=== PATIENT | female | born 1990 | race American Indian/Alaskan Native ===

== ENCOUNTER 2017-06-28 17:36 | Emergency (ER) | payer MEDICAID ==
[2017-06-28 18:17] LABS: Basophils % (Auto) 0.3 % (0.0-1.8); Eosinophils % (Auto) 0.5 % (0.0-4.3); Hematocrit 32.9 % (30.3-42.9); Hemoglobin 11.8 gm/dl (10.1-14.3); Mean Corpuscular HGB Conc 36 % (30-34); Mean Corpuscular Hemoglobin 32 pg (28-32); Mean Corpuscular Volume 90 fl (79-97); Platelet Count 241 K/mm3 (140-440); Red Blood Count 3.67 M/mm3 (3.65-5.03); White Blood Count 5.6 K/mm3 (4.5-11.0)
[2017-06-28 18:20] LABS: Alanine Aminotransferase 6 units/L (7-56); Albumin 4.2 g/dL (3.9-5); Albumin/Globulin Ratio 1.7 %; Alkaline Phosphatase 30 units/L (35-129); Anion Gap 16 mmol/L; Blood Urea Nitrogen 9 mg/dL (7-17); Calcium 8.9 mg/dL (8.4-10.2); Carbon Dioxide 25 mmol/L (22-30); Chloride 98.6 mmol/L (98-107); Glucose 89 mg/dL (65-100); Lipase 35 units/L (13-60); Sodium 136 mmol/L (137-145); Total Protein 6.7 g/dL (6.3-8.2)
[2017-06-28 19:01] LABS: Bilirubin,Urine NEG (Negative); Blood,Urine NEG (Negative); Ketones,Urine NEG (Negative); Leukocyte Esterase,Urine NEG (Negative); Mucus,Urine FEW /HPF; Nitrite,Urine NEG (Negative); Protein,Urine <15 mg/dL mg/dL (Negative)
[2017-06-28] MEDS ORDERED: MOTRIN PO ONE (22:22)
[2017-06-28] MEDS ORDERED: TYLENOL PO ONE (22:23)
[2017-06-28 22:25] VITALS: BP 115/87
--- NOTE | 2017-06-28 23:05 | Emergency Department Report ---
ED Abdominal Pain HPI - General Chief Complaint: Abdominal Pain Stated Complaint: PAIN/D/C TOMMOROW Time Seen by Provider: 06/28/17 22:56 Source: patient Mode of arrival: Ambulatory Limitations: No Limitations - History of Present Illness Initial Comments: 26-year-old female G 2 P12 A 10 year with complaint of diffuse abdominal pain. Denies vaginal bleeding as of discharge. Was seen at the OB office today and told that she had a demise. Presents here for D&C. MD Complaint: abdominal pain Location: diffuse Radiation: none Migration to: no migration Severity scale (0 -10): 9 Quality: cramping Associated Symptoms: denies other symptoms - Related Data Previous Rx's Medication Instructions Recorded Last Taken Type Ibuprofen [Motrin] 600 mg PO Q8H PRN #30 tablet 06/28/17 Unknown Rx oxyCODONE /ACETAMINOPHEN [Percocet 1 tab PO Q6HR PRN #30 tablet 06/28/17 Unknown Rx 5/325] Ferrous Sulfate [Feosol 325 MG tab] 325 mg PO BID #60 tablet 06/29/17 Unknown Rx Allergies Allergy/AdvReac Type Severity Reaction Status Date / Time No Known Allergies Allergy Verified 06/28/17 16:41 ED Review of Systems ROS: Stated complaint: PAIN/D/C TOMMOROW Other details as noted in HPI Comment: All other systems reviewed and negative Constitutional: denies: chills, fever Eyes: denies: eye pain, eye discharge, vision change ENT: denies: ear pain, throat pain Respiratory: denies: cough, shortness of breath, wheezing Cardiovascular: denies: chest pain, palpitations Endocrine: no symptoms reported Gastrointestinal: denies: abdominal pain, nausea, diarrhea Genitourinary: denies: urgency, dysuria, hematuria, discharge, abnormal menses Musculoskeletal: denies: back pain, joint swelling, arthralgia Skin: denies: rash, lesions Neurological: denies: headache, weakness, paresthesias Psychiatric: denies: anxiety, depression Hematological/Lymphatic: denies: easy bleeding, easy bruising ED Past Medical Hx - Past Medical History Previous Medical History?: No Hx HIV: No - Surgical History Past Surgical History?: Yes Additional Surgical History: x 5 - Family History Family history: no significant - Social History Smoking Status: Never Smoker Substance Use Type: None - Medications Home Medications: Home Medications Medication Instructions Recorded Confirmed Last Taken Type Ibuprofen [Motrin] 600 mg PO Q8H PRN #30 tablet 06/28/17 Unknown Rx oxyCODONE /ACETAMINOPHEN [Percocet 1 tab PO Q6HR PRN #30 tablet 06/28/17 Unknown Rx 5/325] Ferrous Sulfate [Feosol 325 MG tab] 325 mg PO BID #60 tablet 06/29/17 Unknown Rx ED Physical Exam - General Limitations: No Limitations General appearance: alert, in no apparent distress - Head Head exam: Present: atraumatic, normocephalic - Eye Eye exam: Present: normal appearance - ENT ENT exam: Present: mucous membranes moist - Neck Neck exam: Present: normal inspection - Respiratory Respiratory exam: Present: normal lung sounds bilaterally. Absent: respiratory distress - Cardiovascular Cardiovascular Exam: Present: regular rate, normal rhythm. Absent: systolic murmur, diastolic murmur, rubs, gallop - GI/Abdominal GI/Abdominal exam: Present: soft, normal bowel sounds - External exam: Present: other (exam deferred to gynecology) - Extremities Exam Extremities exam: Present: normal inspection - Back Exam Back exam: Present: normal inspection - Neurological Exam Neurological exam: Present: alert, oriented X3 - Psychiatric Psychiatric exam: Present: normal affect, normal mood - Skin Skin exam: Present: warm, dry, intact, normal color. Absent: rash ED Course Vital Signs 06/28/17 06/28/17 06/28/17 17:43 22:23 23:00 Temperature 98.5 F 98.1 F Pulse Rate 78 65 Respiratory 16 18 20 Rate Blood Pressure 99/67 Blood Pressure 115/87 [Right] O2 Sat by Pulse 100 100 99 Oximetry ED Medical Decision Making - Lab Data Result diagrams: 06/28/17 17:49 06/28/17 17:49 Laboratory Results - last 24 hr 06/28/17 06/28/17 06/28/17 17:49 17:49 18:23 WBC 5.6 RBC 3.67 Hgb 11.8 Hct 32.9 MCV 90 MCH 32 MCHC 36 H RDW 13.0 L Plt Count 241 Lymph % (Auto) 31.6 [place] % (Auto) 9.0 H Eos % (Auto) 0.5 Baso % (Auto) 0.3 Lymph # 1.8 [place] # 0.5 Eos # 0.0 Baso # 0.0 Seg Neutrophils % 58.6 Seg Neutrophils # 3.3 Sodium 136 L Potassium 4.0 Chloride 98.6 Carbon Dioxide 25 Anion Gap 16 BUN 9 Creatinine 0.5 L Estimated GFR > 60 BUN/Creatinine Ratio 18.00 Glucose 89 Calcium 8.9 Total Bilirubin 0.90 AST 10 ALT 6 L Alkaline Phosphatase 30 L Total Protein 6.7 Albumin 4.2 Albumin/Globulin Ratio 1.7 Lipase 35 Urine Color Yellow Urine Turbidity Clear Urine pH 7.0 Ur Specific [place] 1.024 Urine Protein <15 mg/dl Urine Glucose (UA) Neg Urine Ketones Neg Urine Blood Neg Urine Nitrite Neg Urine Bilirubin Neg Urine Urobilinogen 2.0 Ur Leukocyte Esterase Neg Urine WBC (Auto) 1.0 Urine RBC (Auto) 1.0 U Epithel Cells (Auto) 4.0 Urine Mucus Few - Medical Decision Making Patient here for D&C. Dr. Zhang here to perform D&C. Patient be sent to the OR. Portions of this chart were dictated with dictation software. There may be dictation errors contained within this note. Critical care attestation.: If time is entered above; I have spent that time in minutes in the direct care of this critically ill patient, excluding procedure time. ED Disposition Clinical Impression: Ectopic Disposition: DC/TX-70 ANOTHER TYPE HLTHCARE Is pt being admited?: Yes Condition: Stable Instructions: Abdominal Pain (ED) Referrals: PRIMARY CAREMD [Primary Care Provider] - 3-5 Days
--- NOTE | 2017-06-28 23:15 | Anesthesia Consultation ---
Anesthesia Consult and Med Hx Date of service: 06/28/17 - Airway Anesthetic Teeth Evaluation: Good ROM Head & Neck: Adequate Mental/Hyoid Distance: Adequate Mallampati Class: Class II - Pre-Operative Health Status ASA Pre-Surgery Classification: ASA1, Emergency Proposed Anesthetic Plan: General - Central Nervous System Hx Psychiatric Problems: No - Other Systems Hx Cancer: No
--- NOTE | 2017-06-28 23:15 | Anesthesia Day of Surgery ---
Anesthesia Day of Surgery - Day of Surgery Patient Examined: Yes Patient H&P Reviewed: Yes Patient is NPO: Yes (last meal @ 15:00)
[2017-06-28] MEDS ORDERED: DILAUDID ONE (23:17)
[2017-06-28] MEDS ORDERED: XYLOCAINE MPF 2% ONE (23:17)
[2017-06-28] MEDS ORDERED: DIPRIVAN 10 MG/ML IV ONE (23:17)
[2017-06-28] MEDS ORDERED: NACL 0.9% 1000 ML 1,000 ML ONE (23:20)
[2017-06-28] MEDS ORDERED: TORADOL ONE (23:58)
[2017-06-28] MEDS ORDERED: ZOFRAN ONE (23:58)
[2017-06-29] MEDS ORDERED: CYTOTEC VG ONE (00:12)
== END 2017-06-29 00:15 | disposition other institution (70) ==
LOC: ED 17:36
DX: O02.1 Missed abortion (principal); R10.84 Generalized abdominal pain; Z3A.00 Weeks of gestation of pregnancy not specified
CPT/HCPCS: 36415; 59812; 80053; 81001; 83690; 85025; 86850; 86900; 86901; 88305; 99285; J1170; J1885; J2405; J2590; J2704; J7030

== ENCOUNTER 2018-03-04 13:39 | Emergency (ER) | payer MEDICAID ==
[2018-03-04 15:16] LABS: Bilirubin,Urine NEG (Negative); Blood,Urine NEG (Negative); Color,Urine Yellow (Yellow); Mucus,Urine FEW /HPF; Protein,Urine <15 mg/dL mg/dL (Negative); Urobilinogen,Urine < 2.0 mg/dL (<2.0)
[2018-03-04 15:18] LABS: HCG Qualitative,Urine Positive (Negative)
[2018-03-04 17:27] LABS: Basophils % (Auto) 0.7 % (0.0-1.8); Eosinophils # (Auto) 0.3 K/mm3 (0.0-0.4); Eosinophils % (Auto) 4.9 % (0.0-4.3); Hematocrit 36.8 % (30.3-42.9); Lymphocytes # (Auto) 2.6 K/mm3 (1.2-5.4); Lymphocytes % (Auto) 38.5 % (13.4-35.0); Mean Corpuscular HGB Conc 35 % (30-34); Mean Corpuscular Hemoglobin 31 pg (28-32); Mean Corpuscular Volume 89 fl (79-97); Monocytes # (Auto) 0.4 K/mm3 (0.0-0.8); Monocytes % (Auto) 6.7 % (0.0-7.3); Platelet Count 257 K/mm3 (140-440); Red Blood Count 4.13 M/mm3 (3.65-5.03); Red Cell Distribution Width 13.3 % (13.2-15.2)
[2018-03-04] MEDS ORDERED: ZOFRAN ODT PO ONE (17:27)
--- NOTE | 2018-03-04 17:28 | Emergency Department Report ---
Blank Doc - Documentation Documentation: 27-year-old female presents with complaints of nausea with intermittent vomiting 2 days and crampy left lower quadrant pain rated 7/10 intensity. Denies fever, dysuria, vaginal discharge, or bleeding. Patient did not realize she was . UA here in the ED reveals a normal UA but a positive urine test. LMP 02/04/2018. This is patient's 12 or 13th if she has 2 living children, one history of miscarriage, and had abortions during the remainder pregnancies. Labs ordered CBC, BMP, LFTs, lipase, hCG Quant Ultrasound OB transvaginal Zofran for nausea Patient declined Tylenol stating it does not work
[2018-03-04 17:49] LABS: Alanine Aminotransferase 8 units/L (7-56); Albumin 4.6 g/dL (3.9-5); BUN/Creatinine Ratio 35; Blood Urea Nitrogen 14 mg/dL (7-17); Calcium 8.7 mg/dL (8.4-10.2); Hemolysis Index 62
--- NOTE | 2018-03-04 20:10 | Ultrasound Report ---
FINAL REPORT EXAM: US OB < = 14 WEEKS FETUS HISTORY: vomiting, pregancy TECHNIQUE: Transabdominal and transvaginal sonography of the pelvis. PRIORS: None. FINDINGS: The uterus measures 7.9 x 4.7 x 5.6 cm and appears grossly unremarkable. The endometrial stripe measures mm in AP dimension. No intrauterine fluid collection or IUP identified. The right ovary measures 3.6 x 1.9 x 3.2 cm and contains an ovoid, hypoechoic focus measuring approximately 1.9 cm, which may represent involuting follicle or cyst. The left ovary measures 2.1 x 1.4 x 2.2 cm and is grossly unremarkable. No adnexal masses, ring-like structures or significant free peritoneal fluid. IMPRESSION: 1. No IUP identified. Possibilities include early gestation, early failure, or ectopic . Correlation with serial beta-hCG levels and follow-up ultrasound may help in further evaluation. 2. Findings suggesting involuting follicle or cyst in the right ovary.
--- NOTE | 2018-03-04 20:33 | Emergency Department Report ---
ED HPI - General Chief complaint: Nausea/Vomiting/Diarrhea Stated complaint: VOMITING Time Seen by Provider: 03/04/18 17:21 Source: patient Mode of arrival: Ambulatory Limitations: No Limitations - History of Present Illness Initial comments: This is a 27-year-old female [id number] nontoxic, well nourished in appearance, no acute signs of distress presents to the ED with c/o of nausea, intermittent vomiting, and lower left pelvic cramping 2 days. Patient stated had a positive test at home. Patient denies any fever, chills, nausea, vomiting, headache, stiff neck, numbness, tingling, vaginal bleeding, vaginal discharge. Patient denies any allergies or PMH. MD Complaint: abdominal pain, other (nausea, vomiting) -: days(s) (2) Location: pelvis Radiation: none Severity: mild Severity scale (0 -10): 8 Quality: cramping Consistency: constant Improves with: none Worsens with: none Associated symptoms: nausea/vomiting, abdominal pain (pelvic region). denies: vaginal bleeding, vaginal discharge, dysuria, headache, vision changes, malaise , dysparuenia, rash, seizure, shortness of breath, syncope, weakness Vaginal bleeding: none :: Yes Pre-issac care: none - Related Data Previous Rx's Medication Instructions Recorded Last Taken Type Ibuprofen [Motrin] 600 mg PO Q8H PRN #30 tablet 06/28/17 Unknown Rx oxyCODONE /ACETAMINOPHEN [Percocet 1 tab PO Q6HR PRN #30 tablet 06/28/17 Unknown Rx 5/325] Ferrous Sulfate [Feosol 325 MG tab] 325 mg PO BID #60 tablet 06/29/17 Unknown Rx Allergies Allergy/AdvReac Type Severity Reaction Status Date / Time No Known Allergies Allergy Verified 06/28/17 16:41 ED Review of Systems ROS: Stated complaint: VOMITING Other details as noted in HPI Constitutional: denies: chills, fever Eyes: denies: eye pain, eye discharge, vision change ENT: denies: ear pain, throat pain Respiratory: denies: cough, shortness of breath, wheezing Cardiovascular: denies: chest pain, palpitations Endocrine: no symptoms reported Gastrointestinal: abdominal pain, nausea, vomiting. denies: diarrhea Genitourinary: denies: urgency, dysuria, discharge Musculoskeletal: denies: back pain, joint swelling, arthralgia Skin: denies: rash, lesions Neurological: denies: headache, weakness, paresthesias Psychiatric: denies: anxiety, depression Hematological/Lymphatic: denies: easy bleeding, easy bruising ED Past Medical Hx - Past Medical History Hx HIV: No - Surgical History Additional Surgical History: x 5 - Social History Smoking Status: Never Smoker Substance Use Type: None - Medications Home Medications: Home Medications Medication Instructions Recorded Confirmed Last Taken Type Ibuprofen [Motrin] 600 mg PO Q8H PRN #30 tablet 06/28/17 Unknown Rx oxyCODONE /ACETAMINOPHEN [Percocet 1 tab PO Q6HR PRN #30 tablet 06/28/17 Unknown Rx 5/325] Ferrous Sulfate [Feosol 325 MG tab] 325 mg PO BID #60 tablet 06/29/17 Unknown Rx ED Physical Exam - General Limitations: No Limitations General appearance: alert, in no apparent distress - Head Head exam: Present: atraumatic, normocephalic - Eye Eye exam: Present: normal appearance Pupils: Present: normal accommodation - ENT ENT exam: Present: normal exam, mucous membranes moist - Neck Neck exam: Present: normal inspection, full ROM. Absent: tenderness, meningismus - Respiratory Respiratory exam: Present: normal lung sounds bilaterally. Absent: respiratory distress, wheezes, rales, rhonchi, stridor - Cardiovascular Cardiovascular Exam: Present: regular rate, normal rhythm, normal heart sounds. Absent: bradycardia, tachycardia, irregular rhythm, systolic murmur, diastolic murmur, rubs, gallop - GI/Abdominal GI/Abdominal exam: Present: soft, normal bowel sounds. Absent: distended, tenderness, guarding, rebound, rigid, diminished bowel sounds - Expanded GI/Abdominal Exam Expanded GI/Abdominal exam: Absent: psoas sign, obturator sign, heel tap sign, Stallworth's sign, Rovsing's sign, tenderness at Mcburney's Point, ascites - Rectal Rectal exam: Present: deferred - Extremities Exam Extremities exam: Present: normal inspection, full ROM, normal capillary refill - Back Exam Back exam: Present: normal inspection, full ROM. Absent: tenderness, CVA tenderness (R), CVA tenderness (L), muscle spasm, paraspinal tenderness, vertebral tenderness, rash noted - Neurological Exam Neurological exam: Present: alert, oriented X3, normal gait - Psychiatric Psychiatric exam: Present: normal affect, normal mood - Skin Skin exam: Present: warm, dry, intact, normal color. Absent: rash ED Course Vital Signs 03/04/18 13:42 Temperature 98.2 F Pulse Rate 74 Respiratory 16 Rate Blood Pressure 114/82 O2 Sat by Pulse 100 Oximetry - Reevaluation(s) Reevaluation #1: 03/04/18 20:35 Patient is speaking in full sentences with no signs of distress noted. ED Medical Decision Making - Lab Data Result diagrams: 03/04/18 17:07 03/04/18 17:07 - Medical Decision Making This is a 27-year-old female that presents with . Patient is stable and was examined by me. The HCG Qant at 100s. US OB and transvaginal obtained and dictated by the radiologist. Patient is notified of the US report with no questions noted by the patient. PAtient was instructed to return to the ED or OB /[facility] in 48 hours for a repeat of HCG morelia. Labs are within normal limits including H/H. Patient was referred to Follow-up with a [facility] doctor in 2 days or if symptoms worsen and continue return to emergency room as soon as possible. At time of discharge, the patient does not seem toxic or ill in appearance. No acute signs of distress noted. Patient agrees to discharge treatment plan of care. No further questions noted by the patient. Critical care attestation.: If time is entered above; I have spent that time in minutes in the direct care of this critically ill patient, excluding procedure time. ED Disposition Clinical Impression: Qualifiers: Weeks of gestation: unspecified Qualified Code(s): Z34.90 - Encounter for supervision of normal , unspecified, unspecified trimester Disposition: DC-01 TO HOME OR SELFCARE Is pt being admited?: No Does the pt Need Aspirin: No Condition: Stable Instructions: (ED) Additional Instructions: Return to the ED or OBGYN in 48 hours for a repeat of HCG quantitative test. Follow-up with a [facility] doctor in 2 days or if symptoms worsen and continue return to emergency room as soon as possible. Referrals: PRIMARY CARE, [Primary Care Provider] - 3-5 Days [facility]AD BATEMAN MD [Staff Physician] - 3-5 Days [facility] [Provider Group] - 3-5 Days [facility] [Outside] - 3-5 Days Forms: Work/School Release Form(ED)
[2018-03-04 20:52] VITALS: BP 107/74
== END 2018-03-04 20:52 | disposition home or self-care (01) ==
LOC: ED 13:39
DX: O21.0 Mild hyperemesis gravidarum (principal); Z3A.00 Weeks of gestation of pregnancy not specified
CPT/HCPCS: 36415; 76801; 76817; 80053; 81001; 81025; 83690; 84702; 85025; Q0162

== ENCOUNTER 2018-06-16 14:11 | Emergency (ER) | payer MEDICAID ==
[2018-06-16 14:24] VITALS: BP 112/77
--- NOTE | 2018-06-16 16:03 | Emergency Department Report ---
ED Female HPI - General Chief complaint: Urogenital-Female Stated complaint: ITCHING DISCHARGE Time Seen by Provider: 06/16/18 16:02 Source: patient Mode of arrival: Ambulatory Limitations: No Limitations - History of Present Illness Initial comments: Patient here complaining of vaginal discharge with some itching. She said that discharge has an odor and it smells like previous discharge that she had in the past and she had chlamydia. Patient is unsure who she had sexual activity with to get chlamydia and does not know if individual is having similar symptoms but she says she sure she has chlamydia because the discharge is yellow and it smelled. She denies any fishy odor. Denies any cottage cheeselike discharge but also reports that there is some itching. She denies any abdominal pain or back pain. Denies any vaginal bleeding. Last menstrual period was 06/11/2018. Patient says she does not want to get test that she wants to be treated because she not she has chlamydia. Pain is 0-10 at present. Denies any urinary burning, frequency or urgency. MD Complaint: vaginal discharge Onset/Timin -: days(s) Severity scale (0 -10): 0 Are you Now?: No Last Menstrual Period: 06/11/18 EDC: 03/18/19 Associated Symptoms: vaginal discharge. denies: vaginal bleeding, abdominal pain, nausea/vomiting, fever/chills, headaches, loss of appetite, dysuria, hematuria, rash, seizure, shortness of breath, syncope, weakness - Related Data Sexually active: Yes Previous Rx's Medication Instructions Recorded Last Taken Type Ibuprofen [Motrin] 600 mg PO Q8H PRN #30 tablet 06/28/17 Unknown Rx oxyCODONE /ACETAMINOPHEN [Percocet 1 tab PO Q6HR PRN #30 tablet 06/28/17 Unknown Rx 5/325] Ferrous Sulfate [Feosol 325 MG tab] 325 mg PO BID #60 tablet 06/29/17 Unknown Rx Fluconazole [Diflucan TAB] 150 mg PO QDAY 2 Days #2 tablet 06/16/18 Unknown Rx Allergies Allergy/AdvReac Type Severity Reaction Status Date / Time No Known Allergies Allergy Verified 06/28/17 16:41 ED Review of Systems ROS: Stated complaint: ITCHING DISCHARGE Other details as noted in HPI Constitutional: denies: chills, fever ENT: denies: throat pain Respiratory: denies: cough, shortness of breath, SOB with exertion, SOB at rest , stridor, wheezing Cardiovascular: denies: chest pain, palpitations Gastrointestinal: denies: abdominal pain, nausea, diarrhea Genitourinary: discharge. denies: urgency, dysuria, frequency, hematuria, abnormal menses, dyspareunia Musculoskeletal: denies: back pain, joint swelling, arthralgia, myalgia Skin: denies: rash, lesions ED Past Medical Hx - Past Medical History Previous Medical History?: Yes Hx HIV: No - Surgical History Past Surgical History?: Yes Additional Surgical History: x 5 - Family History Family history: hypertension - Social History Smoking Status: Never Smoker Substance Use Type: None - Medications Home Medications: Home Medications Medication Instructions Recorded Confirmed Last Taken Type Ibuprofen [Motrin] 600 mg PO Q8H PRN #30 tablet 06/28/17 Unknown Rx oxyCODONE /ACETAMINOPHEN [Percocet 1 tab PO Q6HR PRN #30 tablet 06/28/17 Unknown Rx 5/325] Ferrous Sulfate [Feosol 325 MG tab] 325 mg PO BID #60 tablet 06/29/17 Unknown Rx Fluconazole [Diflucan TAB] 150 mg PO QDAY 2 Days #2 tablet 06/16/18 Unknown Rx ED Physical Exam - General Limitations: No Limitations General appearance: alert, in no apparent distress - Head Head exam: Present: atraumatic, normocephalic, normal inspection - Eye Eye exam: Present: normal appearance, PERRL, EOMI Pupils: Present: normal accommodation - ENT ENT exam: Present: normal exam, normal orophraynx, mucous membranes moist, TM's normal bilaterally, normal external ear exam - Neck Neck exam: Present: normal inspection, full ROM. Absent: tenderness, lymphadenopathy - Respiratory Respiratory exam: Present: normal lung sounds bilaterally. Absent: respiratory distress, chest wall tenderness - Cardiovascular Cardiovascular Exam: Present: regular rate, normal rhythm, normal heart sounds. Absent: systolic murmur, diastolic murmur - GI/Abdominal GI/Abdominal exam: Present: soft, normal bowel sounds. Absent: distended, tenderness, rigid - Extremities Exam Extremities exam: Present: normal inspection, full ROM, normal capillary refill. Absent: tenderness, pedal edema, joint swelling, calf tenderness - Back Exam Back exam: Present: normal inspection, full ROM. Absent: tenderness, CVA tenderness (R), CVA tenderness (L), muscle spasm, paraspinal tenderness, vertebral tenderness, rash noted - Neurological Exam Neurological exam: Present: alert, oriented X3, normal gait - Psychiatric Psychiatric exam: Present: normal affect, normal mood - Skin Skin exam: Present: warm, dry, intact, normal color. Absent: rash ED Course Vital Signs 06/16/18 14:16 Temperature 99.0 F Pulse Rate 76 Blood Pressure 112/77 O2 Sat by Pulse 98 Oximetry - Reevaluation(s) Reevaluation #1: 06/16/18 17:00 Patient given Rocephin 250 mg IM and Zithromax 1 g by mouth to cover gonorrhea and chlamydia. No adverse reaction from medication ED Medical Decision Making - Medical Decision Making 27-year-old female presented to the emergency room requesting treatment for chlamydia BK she says she has had similar vaginal discharge that is yellow and has odor and she knows this chlamydia. She is unable to tell me if partner have symptoms. Patient also with some itching to vaginal area and she wants to be treated and does not want to be tested. I evaluated patient and she is stable. Patient chose to be empirically treated for gonorrhea and chlamydia and also requested treatment for yeast infection. She was given Rocephin 250 mg IM and azithromycin 1 g by mouth without any adverse reaction. I discussed the patient diagnosis and the importance of practicing safe sex. I told her she needs to go to health department in 7-10 days to get STD testing. I also told her to refrain from sexual activity for the next 10 days until she gets tested. She was understanding. Patient educated on STDs, medication, treatment plan and need to follow-up for testing. Assessment/plan Abnormal vaginal discharge with exposure to chlamydia and requesting treatment without tested -Patient given an azithromycin 1 g by mouth and Rocephin 250 mg IM without any adverse reaction. -Patient to follow up with health department in 7-10 days to be tested for std -treated empirically for yeast infection. diflucan Patient discharged home in stable condition with prescription for Diflucan and to follow-up with health department in 7-10 days for STD testing that she was understanding. Vital signs are stable she is afebrile and nontoxic in appearance Critical care attestation.: If time is entered above; I have spent that time in minutes in the direct care of this critically ill patient, excluding procedure time. ED Disposition Clinical Impression: Foul smelling vaginal discharge, Exposure to chlamydia Disposition: DC- TO HOME OR SELFCARE Is pt being admited?: No Does the pt Need Aspirin: No Condition: Stable Instructions: Sexually Transmitted Diseases (ED), Vaginitis (ED) Additional Instructions: Follow-up with primary care or health department in 7-10 days to get tested for STD. Prescriptions: Fluconazole [Diflucan TAB] 150 mg PO QDAY 2 Days #2 tablet Referrals: PRIMARY CARE, [Primary Care Provider] - 7-10 days [facility] [Outside] - 7-10 days Forms: Work/School Release Form(ED)
[2018-06-16] MEDS ORDERED: XYLOCAINE 1% MPF 5 mL INFILTRATI ONE (16:33)
[2018-06-16] MEDS ORDERED: ROCEPHIN IM ONE (16:33)
[2018-06-16] MEDS ORDERED: ZITHROMAX PO ONE (16:33)
== END 2018-06-16 17:15 | disposition home or self-care (01) ==
LOC: ED 14:11
DX: N89.8 Other specified noninflammatory disorders of vagina (principal); Z20.2 Contact with and (suspected) exposure to infections with a predominantly sexual mode of transmission
CPT/HCPCS: 96372; 99282; J0696

== ENCOUNTER 2018-08-07 20:06 | Emergency (ER) | payer MEDICAID ==
[2018-08-07 21:22] LABS: HCG Qualitative,Urine Negative (Negative)
[2018-08-07 21:25] LABS: Bilirubin,Urine NEG (Negative); Blood,Urine NEG (Negative); Mucus,Urine 1+ /HPF; Protein,Urine <15 mg/dL mg/dL (Negative)
[2018-08-07 21:32] LABS: Color,Urine Yellow (Yellow)
[2018-08-08] MEDS ORDERED: ZITHROMAX PO ONE (00:39)
[2018-08-08] MEDS ORDERED: XYLOCAINE 1% MPF 5 mL INFILTRATI ONE (00:39)
[2018-08-08] MEDS ORDERED: ROCEPHIN IM ONE (00:39)
--- NOTE | 2018-08-08 01:49 | Emergency Department Report ---
ED Female HPI - General Chief complaint: Urogenital-Female Stated complaint: SORE THROAT, ABNORMAL PELVIC PAIN Time Seen by Provider: 08/08/18 00:38 Source: patient Mode of arrival: Ambulatory Limitations: No Limitations - History of Present Illness Initial comments: 27-year-old -[place] female comes in with multiple complaints of sore throat and possible STD vaginal discharge in pelvic pain but currently denies any pelvic pain at this time. Patient reported she is sexually active unprotected 1 partner. She is 11. 2. She she feels that she may have gonorrhea. She is concerned that she may have gonorrhea of the throat as well. Patient denies fever chills no nausea no vomiting. She reports she is able to eat and drink with no problems. - Related Data Previous Rx's Medication Instructions Recorded Last Taken Type Ibuprofen [Motrin] 600 mg PO Q8H PRN #30 tablet 06/28/17 Unknown Rx oxyCODONE /ACETAMINOPHEN [Percocet 1 tab PO Q6HR PRN #30 tablet 06/28/17 Unknown Rx 5/325] Ferrous Sulfate [Feosol 325 MG tab] 325 mg PO BID #60 tablet 06/29/17 Unknown Rx Doxycycline [Vibramycin CAP] 100 mg PO Q12HR 10 Days #20 capsule 08/08/18 Unknown Rx Fluconazole [Diflucan TAB] 150 mg PO QDAY 2 Days #2 tablet 08/08/18 Unknown Rx metroNIDAZOLE 0.75% [Vandazole 1 applicator VG QHS #5 tube 08/08/18 Unknown Rx 0.75% VAGINAL] Allergies Allergy/AdvReac Type Severity Reaction Status Date / Time No Known Allergies Allergy Verified 06/28/17 16:41 ED Review of Systems ROS: Stated complaint: SORE THROAT, ABNORMAL PELVIC PAIN Other details as noted in HPI ED Past Medical Hx - Past Medical History Hx HIV: No - Surgical History Additional Surgical History: x 5 - Social History Smoking Status: Never Smoker Substance Use Type: None - Medications Home Medications: Home Medications Medication Instructions Recorded Confirmed Last Taken Type Ibuprofen [Motrin] 600 mg PO Q8H PRN #30 tablet 06/28/17 Unknown Rx oxyCODONE /ACETAMINOPHEN [Percocet 1 tab PO Q6HR PRN #30 tablet 06/28/17 Unknown Rx 5/325] Ferrous Sulfate [Feosol 325 MG tab] 325 mg PO BID #60 tablet 06/29/17 Unknown Rx Doxycycline [Vibramycin CAP] 100 mg PO Q12HR 10 Days #20 capsule 08/08/18 Unknown Rx Fluconazole [Diflucan TAB] 150 mg PO QDAY 2 Days #2 tablet 08/08/18 Unknown Rx metroNIDAZOLE 0.75% [Vandazole 1 applicator VG QHS #5 tube 08/08/18 Unknown Rx 0.75% VAGINAL] ED Physical Exam - General Limitations: No Limitations - Head Head exam: Present: atraumatic, normocephalic - Eye Eye exam: Present: EOMI - ENT ENT exam: Present: mucous membranes moist - Expanded ENT Exam Expanded Throat exam: Positive: tonsillar erythema. Negative: tonsillomegaly, tonsillar exudate - Respiratory Respiratory exam: Present: normal lung sounds bilaterally. Absent: respiratory distress - Cardiovascular Cardiovascular Exam: Present: regular rate, normal rhythm. Absent: systolic murmur, diastolic murmur, rubs, gallop - GI/Abdominal GI/Abdominal exam: Present: soft, normal bowel sounds - External exam: Present: normal external exam Speculum exam: Present: erythema, vaginal discharge, cervical discharge Bi-manual exam: Absent: cervical motion tendernes, adnexal tenderness, adnexal mass - Neurological Exam Neurological exam: Present: alert, oriented X3 - Psychiatric Psychiatric exam: Present: normal affect, normal mood - Skin Skin exam: Present: warm, dry, intact, normal color. Absent: rash ED Course Vital Signs 08/07/18 20:13 Temperature 99.1 F Pulse Rate 69 Respiratory 18 Rate Blood Pressure 142/88 O2 Sat by Pulse 98 Oximetry Critical care attestation.: If time is entered above; I have spent that time in minutes in the direct care of this critically ill patient, excluding procedure time. ED Disposition Clinical Impression: Gonorrhea, BV (bacterial vaginosis), Sore throat Disposition: DC-01 TO HOME OR SELFCARE Is pt being admited?: No Does the pt Need Aspirin: No Condition: Stable Instructions: Bacterial Vaginosis (ED), Gonococcal Urethritis (ED) Additional Instructions: Please refrain from intercourse for 2 weeks and have your partner tested and treated. I highly recommended. Follow-up with the health department he needs to be tested for HIV and syphilis, hepatitis and herpes. Prescriptions: metroNIDAZOLE 0.75% [Vandazole 0.75% VAGINAL] 1 applicator VG QHS #5 tube Doxycycline [Vibramycin CAP] 100 mg PO Q12HR 10 Days #20 capsule Fluconazole [Diflucan TAB] 150 mg PO QDAY 2 Days #2 tablet Referrals: PRIMARY CARE, [Primary Care Provider] - 3-5 Days [facility] [Outside] - 3-5 Days [facility] [Outside] - [facility] - [facility] [[facility] - 3-5 Days Forms: STI Treatment and Prevention
[2018-08-08 02:27] VITALS: BP 112/68
== END 2018-08-08 02:26 | disposition home or self-care (01) ==
LOC: ED 20:06
DX: N76.0 Acute vaginitis (principal); B96.89 Other specified bacterial agents as the cause of diseases classified elsewhere; A54.9 Gonococcal infection, unspecified; J02.9 Acute pharyngitis, unspecified
CPT/HCPCS: 81001; 81025; 87116; 87210; 87430; 87591; 99284; J0696

== ENCOUNTER 2018-08-13 18:50 | Emergency (ER) | payer MEDICAID ==
[2018-08-13] MEDS ORDERED: NACL 0.9% 1000 ML 1,000 ML IV ONE (21:32)
[2018-08-13 21:49] LABS: Basophils % (Auto) 0.5 % (0.0-1.8); Eosinophils # (Auto) 0.1 K/mm3 (0.0-0.4); Eosinophils % (Auto) 0.7 % (0.0-4.3); Hematocrit 38.2 % (30.3-42.9); Hemoglobin 13.6 gm/dl (10.1-14.3); Lymphocytes # (Auto) 2.9 K/mm3 (1.2-5.4); Mean Corpuscular HGB Conc 35 % (30-34); Mean Corpuscular Hemoglobin 32 pg (28-32); Mean Corpuscular Volume 91 fl (79-97); Monocytes # (Auto) 0.6 K/mm3 (0.0-0.8); Monocytes % (Auto) 6.3 % (0.0-7.3); Platelet Count 273 K/mm3 (140-440); Red Cell Distribution Width 13.4 % (13.2-15.2)
[2018-08-13 22:04] LABS: Alanine Aminotransferase 8 units/L (7-56); Albumin 4.7 g/dL (3.9-5); BUN/Creatinine Ratio 28; Blood Urea Nitrogen 14 mg/dL (7-17); Calcium 9.5 mg/dL (8.4-10.2); Hemolysis Index 9
[2018-08-14 00:01] LABS: Bilirubin,Urine NEG (Negative); Blood,Urine NEG (Negative); Color,Urine Straw (Yellow); HCG Qualitative,Urine Negative (Negative); Protein,Urine <15 mg/dL mg/dL (Negative); Urobilinogen,Urine < 2.0 mg/dL (<2.0)
[2018-08-14 00:04] LABS: WBC,Urine < 1.0 /HPF (0.0-6.0)
[2018-08-14 01:02] VITALS: BP 114/84
--- NOTE | 2018-08-14 02:44 | Emergency Department Report ---
HPI - General Chief Complaint: Abdominal Pain Time Seen by Provider: 08/14/18 02:35 - HPI HPI: 27-year-old Ugandan female presents to the emergency department with concern for a recurrent sore throat. The patient was seen here about a week ago and was being treated for some vaginal discharge and concern for STD at that time. The patient was treated for gonorrhea, chlamydia, BV. She says that she was also treated for STDs prior to that when she saw her primary care physician. However the patient says that she did some research and found out that he could get gonorrhea of the throat was concerned that was the reason for her discomfort. She denies any fever. She has some pain with swallowing but no difficulty doing so. Through triage, the patient admits to think about abdominal and/or pelvic pain, however she currently denies having any of that at this time and thinks it is due to to started her menstrual cycle. ED Past Medical Hx - Past Medical History Previous Medical History?: No Hx HIV: No - Surgical History Past Surgical History?: Yes Additional Surgical History: x 5 - Social History Smoking Status: Never Smoker Substance Use Type: None - Medications Home Medications: Home Medications Medication Instructions Recorded Confirmed Last Taken Type Ibuprofen [Motrin] 600 mg PO Q8H PRN #30 tablet 06/28/17 Unknown Rx oxyCODONE /ACETAMINOPHEN [Percocet 1 tab PO Q6HR PRN #30 tablet 06/28/17 Unknown Rx 5/325] Ferrous Sulfate [Feosol 325 MG tab] 325 mg PO BID #60 tablet 06/29/17 Unknown Rx Doxycycline [Vibramycin CAP] 100 mg PO Q12HR 10 Days #20 capsule 08/08/18 Unknown Rx Fluconazole [Diflucan TAB] 150 mg PO QDAY 2 Days #2 tablet 08/08/18 Unknown Rx metroNIDAZOLE 0.75% [Vandazole 1 applicator VG QHS #5 tube 08/08/18 Unknown Rx 0.75% VAGINAL] Fluticasone [Flonase] 1 spray NS QDAY #1 bottle 08/14/18 Unknown Rx Loratadine [Claritin] 10 mg PO DAILY #10 tablet 08/14/18 Unknown Rx ED Review of Systems ROS: Stated complaint: SWEATS,SORE THROAT,STOMACH PAIN Other details as noted in HPI Comment: All other systems reviewed and negative Constitutional: denies: chills, fever Eyes: denies: eye pain, eye discharge, vision change ENT: throat pain. denies: ear pain Respiratory: denies: cough, shortness of breath, wheezing Cardiovascular: denies: chest pain, palpitations Gastrointestinal: denies: abdominal pain, nausea, diarrhea Genitourinary: denies: urgency, dysuria, discharge Musculoskeletal: denies: back pain, joint swelling, arthralgia Skin: denies: rash, lesions Neurological: denies: headache, weakness, paresthesias Physical Exam - Physical Exam Vital Signs: Vital Signs 08/13/18 08/14/18 21:28 00:59 Temperature 99.4 F Pulse Rate 73 76 Respiratory 18 16 Rate Blood Pressure 127/87 Blood Pressure 114/84 [Left] O2 Sat by Pulse 100 100 Oximetry Physical Exam: GENERAL: The patient is well-developed well-nourished. HENT: Normocephalic. Atraumatic. Patient has moist mucous membranes. Oropharynx shows no tonsillar hypertrophy, erythema or exudates. There is some hypervascularity in the posterior pharynx and some drainage and/or secretions seen. No drooling or trismus. EYES: Extraocular motions are intact. NECK: Supple. Trachea is midline. CHEST/LUNGS: Clear to auscultation. There is no respiratory distress noted. HEART/CARDIOVASCULAR: Regular. There is no tachycardia. There is no murmur. ABDOMEN: Abdomen is soft, nontender. Patient has normal bowel sounds. There is no abdominal distention. SKIN: Skin is warm and dry. NEURO: The patient is awake, alert, and oriented. The patient is cooperative. The patient has no focal neurologic deficits. The patient has normal speech. MUSCULOSKELETAL: There is no tenderness or deformity. There is no limitation range of motion. There is no evidence of acute injury. ED Course Vital Signs 08/13/18 08/14/18 21:28 00:59 Temperature 99.4 F Pulse Rate 73 76 Respiratory 18 16 Rate Blood Pressure 127/87 Blood Pressure 114/84 [Left] O2 Sat by Pulse 100 100 Oximetry ED Medical Decision Making - Lab Data Result diagrams: 08/13/18 21:40 08/13/18 21:40 - Medical Decision Making Patient complains of some sore throat. She has a previous history of some exposure to STD and has been treated for gonorrhea, chlamydia, BV, trichomoniasis. For some reason, the patient is fixated on the possibility of having gonorrhea of the throat. Even if this was the case, the patient has been treated for gonorrhea and chlamydia. The posterior pharynx appears more consistent with a postnasal drip. She has a recent negative strep screen and culture. The patient will be placed on some Flonase and given Claritin. Vital signs stable including being afebrile. Critical Care Time: No Critical care attestation.: If time is entered above; I have spent that time in minutes in the direct care of this critically ill patient, excluding procedure time. ED Disposition Clinical Impression: Sore throat Disposition: DC-01 TO HOME OR SELFCARE Is pt being admited?: No Condition: Stable Instructions: Pharyngitis (ED) Additional Instructions: Please follow-up with your primary care physician as needed. Return to the emergency Department with any worsening of your symptoms or any acute distress. Prescriptions: Fluticasone [Flonase] 1 spray NS QDAY #1 bottle Loratadine [Claritin] 10 mg PO DAILY #10 tablet Referrals: PRIMARY CARE [Primary Care Provider] - 3-5 Days Forms: Work/School Release Form(ED) Time of Disposition: 02:44
== END 2018-08-14 02:50 | disposition home or self-care (01) ==
LOC: ED 18:50
DX: J02.9 Acute pharyngitis, unspecified (principal)
CPT/HCPCS: 36415; 80053; 81001; 81025; 85025; 99283

== ENCOUNTER 2021-04-08 08:58 | Emergency (ER) | payer MEDICAID ==
[2021-04-08 09:43] VITALS: BP 121/89
--- NOTE | 2021-04-08 10:38 | XRay Report ---
CHEST 2 VIEWS INDICATION / CLINICAL INFORMATION: cough. COMPARISON: None available. FINDINGS: SUPPORT DEVICES: None. HEART / MEDIASTINUM: No significant abnormality. LUNGS / PLEURA: No significant pulmonary or pleural abnormality. No pneumothorax. ADDITIONAL FINDINGS: No significant additional findings. IMPRESSION: 1. No acute findings. Signer Name: Wicho Oconnor MD Signed: 04/08/2021 10:34 AM Workstation Name: [id number]
--- NOTE | 2021-04-08 11:05 | Emergency Department Report ---
ED General Adult HPI - General Chief complaint: Upper Respiratory Infection Stated complaint: AIYANA/COUGH Time Seen by Provider: 04/08/21 09:55 Source: patient Mode of arrival: Ambulatory Limitations: No Limitations - History of Present Illness Initial comments: 30-year-old -Chinese female patient presents with complaints of worsening cough x3 weeks. She also states she has some wheezing that occurs at night. She denies any history of asthma or smoking, fever/chills/sweats, loss of taste/smell, recent sick contacts, abdominal pain, or nausea/vomiting. She states that she has had shortness of breath that occurs mainly with the cough and at night, but denies any exertional shortness of breath, chest pain, recent long travel/surgeries, hemoptysis, history of DVT/PE, history of cancer, or hormone use. Claritin is not helping per patient. Patient states cough is productive of green and yellow mucus - Related Data Previous Rx's Medication Instructions Recorded Last Taken Type Ibuprofen [Motrin] 600 mg PO Q8H PRN #30 tablet 06/28/17 Unknown Rx oxyCODONE /ACETAMINOPHEN [Percocet 1 tab PO Q6HR PRN #30 tablet 06/28/17 Unknown Rx 5/325] Ferrous Sulfate [Feosol 325 MG tab] 325 mg PO BID #60 tablet 06/29/17 Unknown Rx DOXYCYCLINE Hyclate [Vibramycin 100 mg PO Q12HR 10 Days #20 capsule 08/08/18 Unknown Rx CAP] Fluconazole (Nf) [Diflucan TAB] 150 mg PO QDAY 2 Days #2 tablet 08/08/18 Unknown Rx metroNIDAZOLE 0.75% [Vandazole 1 applicator VG QHS #5 tube 08/08/18 Unknown Rx 0.75% VAGINAL] Fluticasone [Flonase] 1 spray NS QDAY #1 bottle 08/14/18 Unknown Rx Loratadine (Nf) [Claritin] 10 mg PO DAILY #10 tablet 08/14/18 Unknown Rx metroNIDAZOLE [metroNIDAZOLE 70 gm VG QHS #7 gel.w.appl 08/11/19 Unknown Rx VAGINAL 0.75% gel] Albuterol Mdi (or & Nicu Only) 2 puff IH QID PRN #8.5 gram 04/08/21 Unknown Rx [ProAir HFA Inhaler] Azithromycin [Zithromax Z-YOLANDA] 0 mg PO DAILY #6 tab 04/08/21 Unknown Rx Benzonatate 200 mg PO TID PRN #30 capsule 04/08/21 Unknown Rx Prednisone [predniSONE 10 mg 10 mg PO .TAPER #1 tab.ds.pk 04/08/21 Unknown Rx (6-Day Pack, 21 Tabs)] Allergies Allergy/AdvReac Type Severity Reaction Status Date / Time No Known Allergies Allergy Verified 06/28/17 16:41 ED Review of Systems ROS: Stated complaint: AIYANA/COUGH Other details as noted in HPI Constitutional: denies: chills, diaphoresis, fever, malaise, weakness Respiratory: cough Cardiovascular: denies: chest pain Gastrointestinal: denies: abdominal pain Skin: denies: change in color Neurological: denies: numbness ED Past Medical Hx - Past Medical History Previous Medical History?: No Hx HIV: No - Surgical History Past Surgical History?: Yes Additional Surgical History: x 5 - Social History Smoking Status: Never Smoker Substance Use Type: None - Medications Home Medications: Home Medications Medication Instructions Recorded Confirmed Last Taken Type Ibuprofen [Motrin] 600 mg PO Q8H PRN #30 tablet 06/28/17 Unknown Rx oxyCODONE /ACETAMINOPHEN [Percocet 1 tab PO Q6HR PRN #30 tablet 06/28/17 Unknown Rx 5/325] Ferrous Sulfate [Feosol 325 MG tab] 325 mg PO BID #60 tablet 06/29/17 Unknown Rx DOXYCYCLINE Hyclate [Vibramycin 100 mg PO Q12HR 10 Days #20 capsule 08/08/18 Unknown Rx CAP] Fluconazole (Nf) [Diflucan TAB] 150 mg PO QDAY 2 Days #2 tablet 08/08/18 Unknown Rx metroNIDAZOLE 0.75% [Vandazole 1 applicator VG QHS #5 tube 08/08/18 Unknown Rx 0.75% VAGINAL] Fluticasone [Flonase] 1 spray NS QDAY #1 bottle 08/14/18 Unknown Rx Loratadine (Nf) [Claritin] 10 mg PO DAILY #10 tablet 08/14/18 Unknown Rx metroNIDAZOLE [metroNIDAZOLE 70 gm VG QHS #7 gel.w.appl 08/11/19 Unknown Rx VAGINAL 0.75% gel] Albuterol Mdi (or & Nicu Only) 2 puff IH QID PRN #8.5 gram 04/08/21 Unknown Rx [ProAir HFA Inhaler] Azithromycin [Zithromax Z-YOLANDA] 0 mg PO DAILY #6 tab 04/08/21 Unknown Rx Benzonatate 200 mg PO TID PRN #30 capsule 04/08/21 Unknown Rx Prednisone [predniSONE 10 mg 10 mg PO .TAPER #1 tab.ds.pk 04/08/21 Unknown Rx (6-Day Pack, 21 Tabs)] ED Physical Exam - General Limitations: No Limitations General appearance: alert, in no apparent distress - Head Head exam: Present: atraumatic, normocephalic - Respiratory Respiratory exam: Present: rhonchi (mild diffuse ). Absent: respiratory distress, wheezes, rales - Cardiovascular Cardiovascular Exam: Present: regular rate, normal rhythm. Absent: systolic murmur, diastolic murmur, rubs, gallop - Back Exam Back exam: Present: full ROM - Neurological Exam Neurological exam: Present: alert, oriented X3 - Psychiatric Psychiatric exam: Present: normal affect, normal mood - Skin Skin exam: Present: warm, dry, intact, normal color. Absent: rash ED Course Vital Signs 04/08/21 09:43 Temperature 98.5 F Pulse Rate 88 Respiratory 16 Rate Blood Pressure 121/89 O2 Sat by Pulse 97 Oximetry ED Medical Decision Making - Radiology Data Radiology results: report reviewed CHEST 2 VIEWS INDICATION / CLINICAL INFORMATION: cough. COMPARISON: None available. FINDINGS: SUPPORT DEVICES: None. HEART / MEDIASTINUM: No significant abnormality. LUNGS / PLEURA: No significant pulmonary or pleural abnormality. No pneumothorax. ADDITIONAL FINDINGS: No significant additional findings. IMPRESSION: 1. No acute findings. - Medical Decision Making 30-year-old -Chinese female patient presents with complaints of worsening cough x3 weeks. She also states she has some wheezing that occurs at night. She denies any history of asthma or smoking, fever/chills/sweats, loss of taste/smell, recent sick contacts, abdominal pain, or nausea/vomiting. She states that she has had shortness of breath that occurs mainly with the cough and at night, but denies any exertional shortness of breath, chest pain, recent long travel/surgeries, hemoptysis, history of DVT/PE, history of cancer, or hormone use. Claritin is not helping per patient. Patient states cough is productive of green and yellow mucus Mild rhonchi noted diffusely lungs on exam. Chest x-ray is normal. Vitals are normal. Will treat for bacterial bronchitis with Z-Yolanda and prednisone. Recommend follow-up with primary care in 3 to 5 days. Discussed signs and symptoms that should prompt immediate return to the emergency department in detail with patient who verbalizes understanding. She is well-appearing and stable for discharge home. Critical care attestation.: If time is entered above; I have spent that time in minutes in the direct care of this critically ill patient, excluding procedure time. ED Disposition Clinical Impression: Acute bacterial bronchitis Disposition: TO HOME OR SELFCARE Is pt being admited?: No Condition: Stable Instructions: Acute Bronchitis, Adult, Acute Bronchitis (ED) Additional Instructions: Delsym Prescriptions: Benzonatate 200 mg PO TID PRN #30 capsule PRN Reason: Cough Prednisone [predniSONE 10 mg (6-Day Pack, 21 Tabs)] 10 mg PO .TAPER #1 tab.ds.pk Albuterol Mdi (or & Nicu Only) [ProAir HFA Inhaler] 2 puff IH QID PRN #8.5 gram PRN Reason: Wheezing Azithromycin [Zithromax Z-YOLANDA] 0 mg PO DAILY #6 tab Referrals: [facility] [Provider Group] - 3-5 Days
== END 2021-04-08 11:00 | disposition home or self-care (01) ==
LOC: ED 08:58
DX: J20.8 Acute bronchitis due to other specified organisms (principal); B96.89 Other specified bacterial agents as the cause of diseases classified elsewhere; Z98.890 Other specified postprocedural states; Z79.1 Long term (current) use of non-steroidal anti-inflammatories (NSAID); Z79.899 Other long term (current) drug therapy
CPT/HCPCS: 71046

== ENCOUNTER 2021-09-08 16:03 | Emergency (ER) | payer MEDICAID ==
[2021-09-08 16:09] VITALS: BP 110/85
--- NOTE | 2021-09-08 17:29 | Emergency Department Report ---
ED GI Bleed HPI - General Chief complaint: GI Bleed Stated complaint: BLOOD IN STOOL ABDOM PAIN Time Seen by Provider: 09/08/21 16:30 Source: patient Mode of arrival: Ambulatory Limitations: No Limitations - History of Present Illness Initial comments: This is a 30-year-old female nontoxic, well nourished in appearance, no acute signs of distress presents to the ED with c/o of had blood in stool with rectal pain last week and only stated had one episode. Patient stated that her brother stated to go to the emergency room for further evaluation due to concerns of family history of colon cancer. Otherwise denies any complaints or symptoms. Denies any rectal pain or bleeding at this time. Denies any abdominal pain or pelvic pain. Denies any urinary symptoms. Patient denies chest pain, short of breath, fever, hemoptysis, blood in stool, chills, headache, stiff neck, numbness or tingling. Patient denies any diarrhea or constipation. Denies any blood in stool. Patient denies any allergies or significant past medical history. -: week(s) (1) Severity scale (0 -10): 0 Improves with: none Worsens with: none Associated Symptoms: denies other symptoms. denies: abdominal pain, nausea, vomiting, epistaxis, fever/chills, headaches, loss of appetite, malaise, easy bruising, rash, other bleeding, shortness of breath, syncope, weakness - Related Data Previous Rx's Medication Instructions Recorded Last Taken Type Ibuprofen [Motrin] 600 mg PO Q8H PRN #30 tablet 06/28/17 Unknown Rx oxyCODONE /ACETAMINOPHEN [Percocet 1 tab PO Q6HR PRN #30 tablet 06/28/17 Unknown Rx 5/325] Ferrous Sulfate [Feosol 325 MG tab] 325 mg PO BID #60 tablet 06/29/17 Unknown Rx DOXYCYCLINE Hyclate [Vibramycin 100 mg PO Q12HR 10 Days #20 capsule 08/08/18 Unknown Rx CAP] Fluconazole (Nf) [Diflucan TAB] 150 mg PO QDAY 2 Days #2 tablet 08/08/18 Unknown Rx metroNIDAZOLE 0.75% [Vandazole 1 applicator VG QHS #5 tube 08/08/18 Unknown Rx 0.75% VAGINAL] Fluticasone [Flonase] 1 spray NS QDAY #1 bottle 08/14/18 Unknown Rx Loratadine (Nf) [Claritin] 10 mg PO DAILY #10 tablet 08/14/18 Unknown Rx metroNIDAZOLE [metroNIDAZOLE 70 gm VG QHS #7 gel.w.appl 08/11/19 Unknown Rx VAGINAL 0.75% gel] Albuterol Mdi (or & Nicu Only) 2 puff IH QID PRN #8.5 gram 04/08/21 Unknown Rx [ProAir HFA Inhaler] Azithromycin [Zithromax Z-YOLANDA] 0 mg PO DAILY #6 tab 04/08/21 Unknown Rx Benzonatate 200 mg PO TID PRN #30 capsule 04/08/21 Unknown Rx Prednisone [predniSONE 10 mg 10 mg PO .TAPER #1 tab.ds.pk 04/08/21 Unknown Rx (6-Day Pack, 21 Tabs)] Hydrocortisone [Preparation H] 26 gm TP PRN PRN 7 Days #1 09/08/21 Unknown Rx cream..g. Allergies Allergy/AdvReac Type Severity Reaction Status Date / Time No Known Allergies Allergy Verified 09/08/21 16:04 ED Review of Systems ROS: Stated complaint: BLOOD IN STOOL ABDOM PAIN Other details as noted in HPI Comment: All other systems reviewed and negative Constitutional: denies: chills, fever Eyes: denies: eye pain, eye discharge, vision change ENT: denies: ear pain, throat pain Respiratory: denies: cough, shortness of breath, wheezing Cardiovascular: denies: chest pain, palpitations Endocrine: no symptoms reported Gastrointestinal: denies: abdominal pain, nausea, diarrhea Genitourinary: denies: urgency, dysuria, discharge Musculoskeletal: denies: back pain, joint swelling, arthralgia Skin: denies: rash, lesions Neurological: denies: headache, weakness, paresthesias Psychiatric: denies: anxiety, depression Hematological/Lymphatic: denies: easy bleeding, easy bruising ED Past Medical Hx - Past Medical History Hx HIV: No - Surgical History Additional Surgical History: x 5 - Social History Smoking Status: Never Smoker Substance Use Type: None - Medications Home Medications: Home Medications Medication Instructions Recorded Confirmed Last Taken Type Ibuprofen [Motrin] 600 mg PO Q8H PRN #30 tablet 06/28/17 Unknown Rx oxyCODONE /ACETAMINOPHEN [Percocet 1 tab PO Q6HR PRN #30 tablet 06/28/17 Unknown Rx 5/325] Ferrous Sulfate [Feosol 325 MG tab] 325 mg PO BID #60 tablet 06/29/17 Unknown Rx DOXYCYCLINE Hyclate [Vibramycin 100 mg PO Q12HR 10 Days #20 capsule 08/08/18 Unknown Rx CAP] Fluconazole (Nf) [Diflucan TAB] 150 mg PO QDAY 2 Days #2 tablet 08/08/18 Unknown Rx metroNIDAZOLE 0.75% [Vandazole 1 applicator VG QHS #5 tube 08/08/18 Unknown Rx 0.75% VAGINAL] Fluticasone [Flonase] 1 spray NS QDAY #1 bottle 08/14/18 Unknown Rx Loratadine (Nf) [Claritin] 10 mg PO DAILY #10 tablet 08/14/18 Unknown Rx metroNIDAZOLE [metroNIDAZOLE 70 gm VG QHS #7 gel.w.appl 08/11/19 Unknown Rx VAGINAL 0.75% gel] Albuterol Mdi (or & Nicu Only) 2 puff IH QID PRN #8.5 gram 04/08/21 Unknown Rx [ProAir HFA Inhaler] Azithromycin [Zithromax Z-YOLANDA] 0 mg PO DAILY #6 tab 04/08/21 Unknown Rx Benzonatate 200 mg PO TID PRN #30 capsule 04/08/21 Unknown Rx Prednisone [predniSONE 10 mg 10 mg PO .TAPER #1 tab.ds.pk 04/08/21 Unknown Rx (6-Day Pack, 21 Tabs)] Hydrocortisone [Preparation H] 26 gm TP PRN PRN 7 Days #1 09/08/21 Unknown Rx cream..g. ED Physical Exam - General Limitations: No Limitations General appearance: alert, in no apparent distress - Head Head exam: Present: atraumatic, normocephalic - Eye Eye exam: Present: normal appearance - Neck Neck exam: Present: normal inspection, full ROM. Absent: lymphadenopathy - Respiratory Respiratory exam: Absent: respiratory distress - Cardiovascular Cardiovascular Exam: Present: regular rate - GI/Abdominal GI/Abdominal exam: Present: soft, normal bowel sounds. 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 Absent: heme (+) stool, black stool, bloody stool, fecal impaction, mass, tenderness - Extremities Exam Extremities exam: Present: normal inspection, full ROM - Back Exam Back exam: Present: normal inspection, full ROM. Absent: tenderness, CVA tenderness (R), CVA tenderness (L), muscle spasm, paraspinal tenderness, vertebral tenderness, rash noted - Neurological Exam Neurological exam: Present: alert, oriented X3, normal gait - Psychiatric Psychiatric exam: Present: normal affect, normal mood - Skin Skin exam: Present: warm, dry, intact, normal color. Absent: rash ED Course Vital Signs 09/08/21 16:09 Temperature 97.9 F Pulse Rate 82 Respiratory 16 Rate Blood Pressure 110/85 O2 Sat by Pulse 96 Oximetry - Reevaluation(s) Reevaluation #1: 09/08/21 17:28 Patient is speaking in full sentences with no signs of distress noted. ED Medical Decision Making - Medical Decision Making 30-year-old female that presents with external hemorrhoids. Patient is stable and was examined by me. Patient educated on sitz bath. Patient be discharged with Preparation H. Patient had a negative occult blood. Patient was instructed to follow-up with a primary care doctor in 3-5 days or if symptoms wo rsen and continue return to emergency room as soon as possible. At time of discharge, the patient does not seem toxic or ill in appearance. No acute signs of distress noted. Patient agrees to discharge treatment plan of care. No further questions noted by the patient. Critical care attestation.: If time is entered above; I have spent that time in minutes in the direct care of this critically ill patient, excluding procedure time. ED Disposition Clinical Impression: External hemorrhoid Disposition: 01 HOME / SELF CARE / HOMELESS Is pt being admited?: No Does the pt Need Aspirin: No Condition: Stable Instructions: Hemorrhoids, [id number], How to Take a Sitz Bath Additional Instructions: Follow-up with a primary care doctor in 3-5 days or if symptoms worsen and con tinue return to emergency room as soon as possible. Prescriptions: Hydrocortisone [Preparation H] 26 gm TP PRN PRN 7 Days #1 cream..g. PRN Reason: Hemorrhoids Referrals: PRIMARY CAREMD [Primary Care Provider] - 3-5 Days MICKY SANDY MD [Staff Physician] - 3-5 Days Forms: Accompanied Note, Work/School Release Form(ED) Time of Disposition: 17:30
== END 2021-09-08 18:02 | disposition home or self-care (01) ==
LOC: ED 16:03
DX: K64.4 Residual hemorrhoidal skin tags (principal); Z98.890 Other specified postprocedural states
CPT/HCPCS: 82271; 99283